=== PATIENT | female | born 1970 | race Caucasian/White ===

== ENCOUNTER 2020-07-06 15:48 | Inpatient (IN) ==
[2020-07-06] MEDS ORDERED: SODIUM CHLORIDE 0.9% 1000ML 1,000 ML IV SCH (17:45)
--- NOTE | 2020-07-06 17:55 | Emergency Department Note ---
Impression & Plan COVID-19, Breathlessness ED Provider Note Provider: Jay Lopez MD DATE OF SERVICE:07/06/2020 CHIEF COMPLAINT: Shortness of breath HISTORY OF PRESENT ILLNESS: Patient is a 50-year-old female reportedly with a factor V Leiden trait not on anticoagulation presenting here today complaining of shortness of breath developing overnight. Patient states since June 26 she her and daughter and several family members have been fighting a viral-like illness with associated fevers myalgias and headache. Patient states her and daughter tested positive for coronavirus but she has not yet been tested. States that the fever has not happened today but more shortness of breath developed overnight. Still complaining of some myalgias and headache as well as some pain in the upper thoracic back. Patient denies trauma. Patient denies significant abdominal pain does report some diarrhea and nausea at times. Patient states she is a non-smoker but her breathing is gotten worse and she feels short of breath so came to the hospital. REVIEW OF SYSTEMS: A total of 10 review of systems was obtained and negative except as stated above in the HPI. PAST MEDICAL HISTORY: As noted above MEDICATIONS: Denies current home medications SOCIAL HISTORY: Very distant smoker, lives at home with PHYSICAL EXAM: GENERAL: alert and oriented in no acute distress on stretcher sitting and coughing Head: normocephalic and atraumatic EYES: No injection, discharge or icterus. NECK: Trachea midline. Supple. LUNGS: Airway patent. No retractions however is coughing. Not tachypneic. HEART: Regular rate and rhythm. No chest wall tenderness ABDOMEN: Soft and non-tender, without guarding or rebound. SKIN: Acyanotic, warm, dry, without rashes EXTREMITIES: Without swelling, tenderness or deformity NEUROLOGICAL: No focal deficits. No aphasia. No facial droop or slurred speech. Ambulatory. EK beats per normal sinus rhythm no PVC or PAC. No acute ST segment elevation or depression. Normal QTC. Normal axis. CONTINUOUS CARDIAC MONITORING: was ordered and showed a heart rate of 80 bpm in normal sinus rhythm Patient's laboratory studies and imaging reviewed. Differential includes Viral syndrome, otitis, pharyngitis, pneumonia, influenza, meningitis, urinary tract infection, sepsis, bacteremia, PE, ACS as well as other pathologies. IMPRESSION/MEDICAL DECISION MAKING: Patient is calling shortness of breath likely related to COVID-19 given her exposure. Test was ordered here today. EKG and chest x-ray obtained. Given her history of factor V Leiden not on anticoagulation or shortness of breath D- dimer was sent to have a possible PE. Basic labs and troponin were sent as well as blood cultures and lactate. Given some IV fluid hydration. Patient is coughing and given some Tylenol and Hycodan as well as IV fluids for symptom control. Laboratory studies show no significant anemia but mild leukopenia white count 4.7. Chest x-ray per my review and radiology report without evidence of lobar pneumonia or pneumothorax. Some slight interstitial changes noted in the lower lung palumbo question atelectasis versus inflammatory changes. No significant electrolyte abnormality. Negative troponin. CRP mildly elevated 4.09. No evidence of pancreatitis. LFTs within normal limits. Covid19 is positive. D-dimer is negative and with the concurrent findings of coronavirus lower suspicion for acute PE. Procalcitonin undetectable. Again seems like a viral pneumonia from the coronavirus. Patient does desaturate into the high 80s ambulatory here and is in the low 90s at rest. Not a smoker. Had extensive discussion with the patient regarding options at this time further observation versus trial at home again. Given her weakness and desaturations with ambulation and significant worsening over the past 24 hours patient will be evaluated by the hospitalist for further observation here overnight. DIAGNOSIS: Shortness of breath, COVID-19 DISPOSITION: Hospitalist will evaluate Patient was agreeable with this plan. Past Med/Surg History Medical History (Updated 07/06/20 @ 21:22 by Jay Lopez M.D.) Factor V Leiden Surgical History No significant past surgical history Social History Smoking Status: Never smoker Preferred Language: Libyan marital status: Current Living Situation: Spouse current occupational status: employed Feels Safe at Home: Yes Allergies Allergies Allergy/AdvReac Type Severity Reaction Status Date / Time ampicillin AdvReac Intermediate Rash Unverified 07/06/20 20:18 Sulfa (Sulfonamide AdvReac Unknown Unknown Unverified 07/06/20 20:18 Antibiotics) Home Meds Home Medications Medication Instructions Recorded Confirmed Elderberry Gummy 2 - 4 tabs PO DAILY 07/06/20 07/06/20 Mellaleuca Activate Immune Tab 3 tabs PO DAILY 07/06/20 07/06/20 acetaminophen [Tylenol Extra 1,000 mg PO Q6H PRN 07/06/20 07/06/20 Strength] ibuprofen 400 mg PO Q6H PRN 07/06/20 07/06/20 menthol [Cough Drops] 0 mg PO UD PRN 07/06/20 07/06/20 Results & Data (ED) Vital Signs Vital Signs - 24 hr 07/06/20 16:08 07/06/20 18:17 07/06/20 18:30 Temperature 36.8 C 37.5 C Temperature Source Oral Oral Pulse Rate 96 H Pulse Rate [Apical] 86 Respiratory Rate 20 22 Respiratory Effort / Characteristics Non-Labored Non-Labored Non-Labored Respiratory Depth Normal Normal Blood Pressure 137/76 Blood Pressure [Right Arm] 127/75 Blood Pressure Mean 96 Blood Pressure Mean [Right Arm] 92 Blood Pressure Position [Right Arm] Pulse Oximetry 91 94 Oxygen Delivery Method Room Air Room Air Room Air Sepsis Recent Fever Within 48 Hours No Sepsis New/Unexplained Change in Mental Status N/A Sepsis Action Taken by Nursing No Action Required 07/06/20 19:00 07/06/20 20:30 07/06/20 21:15 Temperature Temperature Source Pulse Rate Pulse Rate [Apical] 79 72 Respiratory Rate 20 18 Respiratory Effort / Characteristics Respiratory Depth Blood Pressure Blood Pressure [Right Arm] 116/64 118/71 Blood Pressure Mean Blood Pressure Mean [Right Arm] 81 86 Blood Pressure Position [Right Arm] Lying Pulse Oximetry 96 93 88 L Oxygen Delivery Method Room Air Room Air Room Air Sepsis Recent Fever Within 48 Hours Sepsis New/Unexplained Change in Mental Status Sepsis Action Taken by Nursing Laboratory Data Result diagrams: 07/06/20 18:30 07/06/20 18:30 Lab Results 07/06/20 07/06/20 07/06/20 Range/Units 18:20 18:20 18:30 WBC (4.8-10.8) K/uL RBC (4.2-5.4) M/uL Hgb (12.0-16.0) g/dL Hct (37-47) % MCV (80-100) fL MCH (25-34) pg MCHC (32-36) g/dL RDW Std Deviation (36.4-46.3) fL RDW Coeff of Serina (11.5-14.5) % Plt Count (130-400) K/uL MPV (7.4-10.4) fL Immature Gran % (Auto) % Neut % (Auto) % Lymph % (Auto) % [place] % (Auto) % Eos % (Auto) % Baso % (Auto) % Neut # (Auto) (1.4-6.5) K/uL Lymph # (Auto) (1.2-3.4) K/uL Denton # (Auto) (0.11-0.59) K/uL Eos # (Auto) (0-0.5) K/uL Baso # (Auto) (0-0.2) K/uL Immature Gran # (Auto) (0.00-0.02) K/uL PT 10.9 (9.0-12.0) Seconds INR 1.0 (0.9-1.1) D-Dimer 440 (0-500) ug/L FEU Sodium (136-145) mmol/L Potassium (3.5-5.1) mmol/L Chloride (98-107) mmol/L Carbon Dioxide (21-32) mmol/L Anion Gap (3-11) BUN (7-18) mg/dl Creatinine (0.6-1.2) mg/dl Est Cr Clr Drug Dosing ml/min Est GFR ( Amer) Est GFR (Non-Af Amer) BUN/Creatinine Ratio (10-20) Glucose (70-99) mg/dl Lactate (0.4-2.0) mmol/L Calcium (8.5-10.1) mg/dl Total Bilirubin (0.2-1) mg/dl AST (15-37) U/L ALT (12-78) U/L Alkaline Phosphatase (45-117) U/L Troponin I (0-0.045) ng/ml C-Reactive Protein (0-0.29) mg/dl Total Protein (6.4-8.2) gm/dl Albumin (3.4-5.0) gm/dl Globulin (2.5-4.0) gm/dl Albumin/Globulin Ratio (0.9-2) Lipase (73-393) U/L Procalcitonin (0-0.5) ng/ml COVID-19 Eval Order Covid19 Done at [facility] COVID-19 PCR POSITIVE A* (Negative) 07/06/20 07/06/20 07/06/20 Range/Units 18:30 18:30 18:30 WBC 4.70 L (4.8-10.8) K/uL RBC 4.43 (4.2-5.4) M/uL Hgb 12.7 (12.0-16.0) g/dL Hct 40.0 (37-47) % MCV 90.3 (80-100) fL MCH 28.7 (25-34) pg MCHC 31.8 L (32-36) g/dL RDW Std Deviation 43.1 (36.4-46.3) fL RDW Coeff of Serina 13.0 (11.5-14.5) % Plt Count 192 (130-400) K/uL MPV 12.5 H (7.4-10.4) fL Immature Gran % (Auto) 0.2 % Neut % (Auto) 60.7 % Lymph % (Auto) 30.4 % Denton % (Auto) 8.5 % Eos % (Auto) 0.0 % Baso % (Auto) 0.2 % Neut # (Auto) 2.85 (1.4-6.5) K/uL Lymph # (Auto) 1.43 (1.2-3.4) K/uL Denton # (Auto) 0.40 (0.11-0.59) K/uL Eos # (Auto) 0.00 (0-0.5) K/uL Baso # (Auto) 0.01 (0-0.2) K/uL Immature Gran # (Auto) 0.01 (0.00-0.02) K/uL PT (9.0-12.0) Seconds INR (0.9-1.1) D-Dimer (0-500) ug/L FEU Sodium 138 (136-145) mmol/L Potassium 3.5 (3.5-5.1) mmol/L Chloride 105 (98-107) mmol/L Carbon Dioxide 29 (21-32) mmol/L Anion Gap 4.0 (3-11) BUN 9 (7-18) mg/dl Creatinine 0.75 (0.6-1.2) mg/dl Est Cr Clr Drug Dosing 100.0 ml/min Est GFR ( Amer) 108.5 Est GFR (Non-Af Amer) 93.6 BUN/Creatinine Ratio 11.6 (10-20) Glucose 82 (70-99) mg/dl Lactate (0.4-2.0) mmol/L Calcium 8.6 (8.5-10.1) mg/dl Total Bilirubin 0.5 (0.2-1) mg/dl AST 28 (15-37) U/L ALT 42 (12-78) U/L Alkaline Phosphatase 82 (45-117) U/L Troponin I < 0.015 (0-0.045) ng/ml C-Reactive Protein 4.09 H (0-0.29) mg/dl Total Protein 8.2 (6.4-8.2) gm/dl Albumin 3.7 (3.4-5.0) gm/dl Globulin 4.5 H (2.5-4.0) gm/dl Albumin/Globulin Ratio 0.8 L (0.9-2) Lipase 109 (73-393) U/L Procalcitonin < 0.05 (0-0.5) ng/ml COVID-19 Eval Order COVID-19 PCR (Negative) 07/06/20 Range/Units 19:59 WBC (4.8-10.8) K/uL RBC (4.2-5.4) M/uL Hgb (12.0-16.0) g/dL Hct (37-47) % MCV (80-100) fL MCH (25-34) pg MCHC (32-36) g/dL RDW Std Deviation (36.4-46.3) fL RDW Coeff of Serina (11.5-14.5) % Plt Count (130-400) K/uL MPV (7.4-10.4) fL Immature Gran % (Auto) % Neut % (Auto) % Lymph % (Auto) % Denton % (Auto) % Eos % (Auto) % Baso % (Auto) % Neut # (Auto) (1.4-6.5) K/uL Lymph # (Auto) (1.2-3.4) K/uL Denton # (Auto) (0.11-0.59) K/uL Eos # (Auto) (0-0.5) K/uL Baso # (Auto) (0-0.2) K/uL Immature Gran # (Auto) (0.00-0.02) K/uL PT (9.0-12.0) Seconds INR (0.9-1.1) D-Dimer (0-500) ug/L FEU Sodium (136-145) mmol/L Potassium (3.5-5.1) mmol/L Chloride (98-107) mmol/L Carbon Dioxide (21-32) mmol/L Anion Gap (3-11) BUN (7-18) mg/dl Creatinine (0.6-1.2) mg/dl Est Cr Clr Drug Dosing ml/min Est GFR ( Amer) Est GFR (Non-Af Amer) BUN/Creatinine Ratio (10-20) Glucose (70-99) mg/dl Lactate 0.8 (0.4-2.0) mmol/L Calcium (8.5-10.1) mg/dl Total Bilirubin (0.2-1) mg/dl AST (15-37) U/L ALT (12-78) U/L Alkaline Phosphatase (45-117) U/L Troponin I (0-0.045) ng/ml C-Reactive Protein (0-0.29) mg/dl Total Protein (6.4-8.2) gm/dl Albumin (3.4-5.0) gm/dl Globulin (2.5-4.0) gm/dl Albumin/Globulin Ratio (0.9-2) Lipase (73-393) U/L Procalcitonin (0-0.5) ng/ml COVID-19 Eval Order COVID-19 PCR (Negative) Administered Medications Discontinued Medications Acetaminophen (Acetaminophen 500 Mg Tab) 1,000 mg PO NOW STA Stop: 07/06/20 17:58 Last Admin: 07/06/20 18:16 Dose: 1,000 mg Documented by: [id number] Hydrocodone Bit/Homatropine Methylb (Hydrocodone/Homatropine Syrup 5mg/1.5mg 5ml Udp) 5 ml PO NOW STA Stop: 07/06/20 17:58 Last Admin: 07/06/20 18:16 Dose: 5 ml Documented by: [id number] Sodium Chloride (Nss 1000ml) 1,000 mls @ 999 mls/hr IV .Q1H1M [id number] Stop: 07/06/20 18:45 Last Admin: 07/06/20 19:13 Dose: 999 mls/hr Documented by: [id number] Discharge Plan Visit Data Chief Complaint: Shortness of Breath/Dyspnea Stated Complaint: & DAUGHTER TESTED POSITIVE FOR COVID ED Provider: Jay Lopez Discharge Problem: COVID-19, Breathlessness Forms Stand Alone Forms: [facility] Prescriptions Prescriptions: No Action acetaminophen [Tylenol Extra Strength] 500 mg Tablet 1,000 mg PO Q6H PRN (Reason: Fever Or Pain) RF: 0 ibuprofen 200 mg Tablet 400 mg PO Q6H PRN (Reason: Pain) RF: 0 Cough Drops 2.7 mg Lozenge 0 mg PO UD PRN (Reason: Cough) RF: 0 Elderberry Gummy 2 - 4 tabs PO DAILY RF: 0 Mellaleuca Activate Immune Tab 3 tabs PO DAILY RF: 0
[2020-07-06] MEDS ORDERED: HYDROcodone/HOMATROPINE SYRUP 5MG/1.5MG 5ML UDP PO STA (17:57)
[2020-07-06] MEDS ORDERED: ACETAMINOPHEN 500 MG TAB PO STA (17:57)
[2020-07-06 19:06] LABS: Basophils # (auto) 0.01 K/uL (0-0.2); Basophils % (auto) 0.2 %; Hemoglobin 12.7 g/dL (12.0-16.0); Immature Granulocytes # (auto) 0.01 K/uL (0.00-0.02); Immature Granulocytes % (auto) 0.2 %; Lymphocytes # (auto) 1.43 K/uL (1.2-3.4); Lymphocytes % (auto) 30.4 %; Mean Corpuscular Hemoglobin 28.7 pg (25-34); Mean Corpuscular Hgb Conc 31.8 g/dL (32-36); Mean Corpuscular Volume 90.3 fL (80-100); Mean Platelet Volume 12.5 fL (7.4-10.4); Monocytes % (auto) 8.5 %; Neutrophils # (auto) 2.85 K/uL (1.4-6.5); Neutrophils % (auto) 60.7 %; Platelet Count 192 K/uL (130-400); RDW Standard Deviation 43.1 fL (36.4-46.3); Red Blood Count 4.43 M/uL (4.2-5.4)
[2020-07-06 19:16] LABS: D Dimer 440 ug/L FEU (0-500); Prothrombin Time 10.9 Seconds (9.0-12.0)
[2020-07-06 19:24] LABS: Alanine Aminotransferase 42 U/L (12-78); Albumin Level 3.7 gm/dl (3.4-5.0); Aspartate Aminotransferase 28 U/L (15-37); BUN Creatinine Ratio 11.6 (10-20); Blood Urea Nitrogen 9 mg/dl (7-18); Calcium 8.6 mg/dl (8.5-10.1); Carbon Dioxide 29 mmol/L (21-32); Chloride 105 mmol/L (98-107); Est GFR (African American) 108.5; Est GFR (Non-African American) 93.6; Glucose 82 mg/dl (70-99); Lipase 109 U/L (73-393); Potassium 3.5 mmol/L (3.5-5.1); Sodium 138 mmol/L (136-145)
--- NOTE | 2020-07-06 19:27 | XRay Report ---
XR chest 1V portable CLINICAL HISTORY: Shortness of breath. Cough. COMPARISON STUDY: No previous studies for comparison. FINDINGS: Lung volumes are diminished. There is no pneumothorax or pleural effusion. There are mild b ilateral lower lung airspace opacities. Cardiac size is normal. There is no evidence for pulmonary ed eliel. IMPRESSION: Mild bilateral lower lung airspace opacities which could reflect an infectious process o r atelectasis. Radiographic follow-up is recommended. ACT 112: Negative or not required by law. Electronically signed by: Keegan Pittman M.D. 07/06/2020 7:26 PM
[2020-07-06 19:28] LABS: Albumin Globulin Ratio 0.8 (0.9-2); Alkaline Phosphatase 82 U/L (45-117); Bilirubin,Total 0.5 mg/dl (0.2-1); C Reactive Protein 4.09 mg/dl (0-0.29); Globulin 4.5 gm/dl (2.5-4.0); Total Protein 8.2 gm/dl (6.4-8.2); Troponin I < 0.015 ng/ml (0-0.045)
[2020-07-06] MEDS ORDERED: DEXAMETHASONE SOD INJ 10 MG/ML VIAL IV ONE (22:31)
--- NOTE | 2020-07-06 22:49 | History & Physical Report ---
Date of Service July 06, 2020 Assessment & Plan (1) Pneumonia due to COVID-19 virus: Pneumonia due to COVID-19 virus with hypoxia- Pulse ox initially 88% on room air, prior to treatments. Abnormal chest x-ray with bibasilar infiltrate Admit to hospital. Decadron 6 mg IV daily. Remdesivir IV per protocol Ceftriaxone 1 g IV daily Azithromycin 500 mg IV daily Ventolin HFA 2 puffs 4 times daily and every 2 hours as needed Nasal cannula oxygen, titrate to keep pulse ox around 95% Present on Admission?: Yes (2) Hypoxia: See above Present on Admission?: Yes (3) Dehydration: NSS + KCl 20 mEq at 100 mils per hour Present on Admission?: Yes History of Present Illness Chief Complaint: The patient presents to the emergency department with worsening shortness of breath that began about 3 days ago, and worsened overnight. Primary Care Provider: NO PCP The patient is a 50-year-old female with a past medical history including fa annemarieor Jelly Patton whose and daughter and several of the family members have been diagnosed with COVID-19 infection. Her was admitted to the hospital here last evening with COVID-19 pneumonia. Testing for her in the emergency department tonight did reveal a positive COVID-19 test, and chest x- ray showed bilateral basal infiltrates suggesting pneumonia. She is also had significant issues with nausea but no vomiting, and feels very fatigued. Allergies Allergy/AdvReac Type Severity Reaction Status Date / Time ampicillin AdvReac Intermediate Rash Unverified 07/06/20 20:18 Sulfa (Sulfonamide AdvReac Unknown Unknown Unverified 07/06/20 20:18 Antibiotics) Home Medications Home Medications Medication Instructions Recorded Confirmed Type Elderberry Gummy 2 - 4 tabs PO DAILY 07/06/20 07/06/20 History Mellaleuca Activate Immune Tab 3 tabs PO DAILY 07/06/20 07/06/20 History acetaminophen [Tylenol Extra 1,000 mg PO Q6H PRN 07/06/20 07/06/20 History Strength] ibuprofen 400 mg PO Q6H PRN 07/06/20 07/06/20 History menthol [Cough Drops] 0 mg PO UD PRN 07/06/20 07/06/20 History Past Med/Surg History Medical History (Updated 07/07/20 @ 02:45 by Figueroa Garvin MD) Factor V Leiden Surgical History No significant past surgical history Social History Smoking Status: Never smoker Preferred Language: Cuban marital status: Current Living Situation: Spouse current occupational status: employed Feels Safe at Home: Yes Review of Systems Review of Systems: The patient denies chest pain, palpitations, lower extremity swelling, sore throat, chills, sweats, vomiting, diarrhea , constipation, abdominal pain, pelvic pain, blood in urine or stool, dysuria, urinary frequency or urgency, lightheadedness, dizziness, memory loss, loss of consciousness, rash, abnormal bruising or bleeding, imbalance, focal weakness, numbness or tingling in arms or legs, or night sweats. The review of systems is otherwise negative other than for that already noted above, and at least 10 systems have been reviewed. Physical Exam Physical Exam: The patient is awake, alert and oriented 3, well developed and well nourished, normocephalic and atraumatic, lying in bed and in no acute distress. HEENT--PERRL, EOMI, mucous membranes and oropharynx dry. Neck--supple. No JVD. No bruits. Thyroid normal, trachea midline, no adenopathy. Heart--normal S1 and S2. No murmurs, rubs or gallops. Lungs--coarse breath sounds. no respiratory distress, no accessory muscle use. Abdomen--normal bowel sounds and soft. Nontender. Nondistended, no hernias or masses, no organomegaly. Extremities--no cyanosis or clubbing. No edema. Dermatologic--normal skin turgor, normal color, no abnormal lymph nodes, no rash. Neurologic--cranial nerves II through XII grossly intact. Rheumatologic--normal range of motion. Psychiatric--normal affect. Results & Data Results & Data ([facility]) Vital Signs (Past 12 Hours) Vital Signs Temp Pulse Pulse Resp BP BP Pulse Ox 07/06/20 21:15 88 L 07/06/20 20:30 72 18 118/71 93 07/06/20 19:00 79 20 116/64 96 07/06/20 18:17 99.5 F 86 22 127/75 94 07/06/20 16:08 98.2 F 96 H 20 137/76 91 Laboratory Results Laboratory Results WBC 4.70 K/uL (4.8-10.8) L 07/06/20 18:30 RBC 4.43 M/uL (4.2-5.4) 07/06/20 18:30 Hgb 12.7 g/dL (12.0-16.0) 07/06/20 18:30 Hct 40.0 % (37-47) 07/06/20 18:30 MCV 90.3 fL (80-100) 07/06/20 18:30 MCH 28.7 pg (25-34) 07/06/20 18:30 MCHC 31.8 g/dL (32-36) L 07/06/20 18:30 RDW Std Deviation 43.1 fL (36.4-46.3) 07/06/20 18:30 RDW Coeff of Serina 13.0 % (11.5-14.5) 07/06/20 18:30 Plt Count 192 K/uL (130-400) 07/06/20 18:30 MPV 12.5 fL (7.4-10.4) H 07/06/20 18:30 Immature Gran % (Auto) 0.2 % 07/06/20 18:30 Neut % (Auto) 60.7 % 07/06/20 18:30 Lymph % (Auto) 30.4 % 07/06/20 18:30 Kimble % (Auto) 8.5 % 07/06/20 18:30 Eos % (Auto) 0.0 % 07/06/20 18:30 Baso % (Auto) 0.2 % 07/06/20 18:30 Neut # (Auto) 2.85 K/uL (1.4-6.5) 07/06/20 18:30 Lymph # (Auto) 1.43 K/uL (1.2-3.4) 07/06/20 18:30 Kimble # (Auto) 0.40 K/uL (0.11-0.59) 07/06/20 18:30 Eos # (Auto) 0.00 K/uL (0-0.5) 07/06/20 18:30 Baso # (Auto) 0.01 K/uL (0-0.2) 07/06/20 18:30 Immature Gran # (Auto) 0.01 K/uL (0.00-0.02) 07/06/20 18:30 PT 10.9 Seconds (9.0-12.0) 07/06/20 18:30 INR 1.0 (0.9-1.1) 07/06/20 18:30 D-Dimer 440 ug/L FEU (0-500) 07/06/20 18:30 Sodium 138 mmol/L (136-145) 07/06/20 18:30 Potassium 3.5 mmol/L (3.5-5.1) 07/06/20 18:30 Chloride 105 mmol/L (98-107) 07/06/20 18:30 Carbon Dioxide 29 mmol/L (21-32) 07/06/20 18:30 Anion Gap 4.0 (3-11) 07/06/20 18:30 BUN 9 mg/dl (7-18) 07/06/20 18:30 Creatinine 0.75 mg/dl (0.6-1.2) 07/06/20 18:30 Est Cr Clr Drug Dosing 100.0 ml/min 07/06/20 18:30 Est GFR ( Amer) 108.5 07/06/20 18:30 Est GFR (Non-Af Amer) 93.6 07/06/20 18:30 BUN/Creatinine Ratio 11.6 (10-20) 07/06/20 18:30 Glucose 82 mg/dl (70-99) 07/06/20 18:30 Lactate 0.8 mmol/L (0.4-2.0) 07/06/20 19:59 Calcium 8.6 mg/dl (8.5-10.1) 07/06/20 18:30 Total Bilirubin 0.5 mg/dl (0.2-1) 07/06/20 18:30 AST 28 U/L (15-37) 07/06/20 18:30 ALT 42 U/L (12-78) 07/06/20 18:30 Alkaline Phosphatase 82 U/L (45-117) 07/06/20 18:30 Troponin I < 0.015 ng/ml (0-0.045) 07/06/20 18:30 C-Reactive Protein 4.09 mg/dl (0-0.29) H 07/06/20 18:30 Total Protein 8.2 gm/dl (6.4-8.2) 07/06/20 18:30 Albumin 3.7 gm/dl (3.4-5.0) 07/06/20 18:30 Globulin 4.5 gm/dl (2.5-4.0) H 07/06/20 18:30 Albumin/Globulin Ratio 0.8 (0.9-2) L 07/06/20 18:30 Lipase 109 U/L (73-393) 07/06/20 18:30 Procalcitonin < 0.05 ng/ml (0-0.5) 07/06/20 18:30 COVID-19 Eval Order Covid19 Done at [facility] 07/06/20 18:20 COVID-19 PCR POSITIVE (Negative) A* 07/06/20 18:20 Diagnostic Findings [facility], [id number] XRay Report Patient: LINDA AKERS AAdmit Date: 07/06/20MR#: [id number]: [address] [id number]: Date: [address] Zip: [place] [address]Bsf: 50Location: EDSex: FRoom/Bed:Att Phy:Diagnosis: & DAUGHTER TESTED POSITIVE FOR COVIDPri Phy: PCP,NOService Date: 07/06/20Fam Phy:Interpreting Phy: Keegan Pittman MDAdmit Phy: Ordering Phy: Jay Lopez M.D. cc: ~ XR chest 1V portable CLINICAL HISTORY: Shortness of breath. Cough. COMPARISON STUDY: No previous studies for comparison. FINDINGS: Lung volumes are diminished. There is no pneumothorax or pleural effusion. There are mild bilateral lower lung airspace opacities. Cardiac size is normal. There is no evidence for pulmonary edema. IMPRESSION: Mild bilateral lower lung airspace opacities which could reflect an infectious process or atelectasis. Radiographic follow-up is recommended. ACT 112: Negative or not required by law. Electronically signed by: Keegan Pittman M.D. 07/06/2020 7:26 PM Dictated: 11/11/20 1924Transcribed: 07/06/204 Code Status & VTE Plan Code Status Full code VTE Prophylaxis Plan VTE Prophylaxis will be ordered: Yes PG Care Time/CCT Total # of Minutes Spent Total Time Spent with Patient: Total time spent is greater than 50% in coordination of care (as documented) at patient's floor/unit and/or counseling patient: Coding Level of Care Code 91824 Initial Inpt Care Lvl 3 Diagnoses Pneumonia due to COVID-19 virus U07.1; J12.89 Hypoxia R09.02 Dehydration E86.0
[2020-07-06] MEDS ORDERED: FAMOTIDINE 20MG/5ML IV PUSH IV ONE (23:18)
[2020-07-06] MEDS: FAMOTIDINE 20 MG in SYRINGE 3 ML IV SCH (23:38)
[2020-07-07] MEDS ORDERED: ACETAMINOPHEN 325 MG TAB PO PRN (02:28)
[2020-07-07] MEDS ORDERED: ACETAMINOPHEN 500 MG TAB PO PRN (02:28)
[2020-07-07] MEDS ORDERED: ONDANSETRON INJ 2 MG/ML 2 ML VIAL IV PRN (02:28)
[2020-07-07] MEDS ORDERED: REMDESIVIR 200 MG in SODIUM CHLORIDE 0.9% 210 ML IV ONE (03:00)
[2020-07-07 03:25] LABS: Appearance Urine Cloudy (Clear); Bacteria Urine Automated 2+ (Negative); Bilirubin Urine Negative (Negative); Blood Urine Negative (Negative); Color Urine Yellow; Epithelial Cell Urine Auto >30 /lpf (0-5); Glucose Urine UA Negative (Negative); Ketones Urine 2+ (Negative); Leukocyte Esterase Urine 1+ (Negative); Nitrite Urine Negative (Negative); Protein Urine Negative (Negative); RBC Urine Automated 0-4 /hpf (0-4); Specific Gravity Urine 1.017 (1.000-1.030); Urobilinogen Urine Negative (Negative)
[2020-07-07] MEDS: NSS + 20MEQ KCL 20 MEQ/1,000 ML BAG IV SCH ×2 (03:46→14:28)
[2020-07-07] MEDS: cefTRIAXone SODIUM 2,000 MG in DEXTROSE 5% 50 ML IV SCH (03:47)
[2020-07-07] MEDS: AZITHROMYCIN 500 MG in DEXTROSE 5% 250 ML IV SCH (05:33)
[2020-07-07] MEDS: SODIUM CHLORIDE 0.9% 10ML FLUSH IV SCH (07:48)
[2020-07-07] MEDS: BENZONATATE 100 MG CAPSULE PO SCH ×3 (07:48→21:58)
[2020-07-07] MEDS: dexAMETHasone 6 MG in SYRINGE 0 ML IV SCH (07:48)
[2020-07-07] MEDS: ALBUTEROL HFA 8 GM INHALER INH SCH ×4 (07:53→19:58)
[2020-07-07] MEDS: ENOXAPARIN INJ 40 MG/0.4 ML SYR SQ SCH (09:24)
[2020-07-07] MEDS: FAMOTIDINE 20 MG in SYRINGE 3 ML IV SCH ×2 (09:25→21:58)
--- NOTE | 2020-07-07 10:43 | Electrocardiogram Report ---
Test Reason : Blood Pressure : / mmHG Vent. Rate : 083 BPM Atrial Rate : 083 BPM P-R Int : 166 ms QRS Dur : 076 ms QT Int : 376 ms P-R-T Axes : 048 -09 018 degrees QTc Int : 441 ms Poor data quality, interpretation may be adversely affected Normal sinus rhythm Septal infarct , age undetermined Abnormal ECG No previous ECGs available Confirmed by Aayush Ravi ([id number]) on 07/07/2020 10:43:23 AM Referred By: REFERRED SELF Confirmed By:Aayush Ravi
--- NOTE | 2020-07-07 16:14 | Hospitalist Progress Note ---
Date of Service July 07, 2020 Assessment & Plan (1) Pneumonia due to COVID-19 virus: Pneumonia due to COVID-19 virus with hypoxia- Pulse ox initially 88% on room air, prior to treatments. Abnormal chest x-ray with bibasilar infiltrate Decadron 6 mg IV daily x 10 days, today is day 2 Remdesivir IV per protocol, today is day 2 no role for plasma as diagnosis was over a week ago Ceftriaxone 1 g IV daily Azithromycin 500 mg IV daily Ventolin HFA 2 puffs 4 times daily and every 2 hours as needed Nasal cannula oxygen, titrate to keep pulse ox around 95%, currently requiring 2L but very short of breath on exertion try to titrate oxygen, might be ready for discharge tomorrow (2) Hypoxia: See above (3) Dehydration: NSS + KCl 20 mEq at 100 mils per hour can stop fluids today Admission and Anticipated Discharge Date Admission Date: July 06, 2020 Subjective patient says she is doing okay if laying still, but even the slightest amount of exertion makes her very short of breath no fever or chills, her appetite is okay, not great, no nausea she has a dry cough reviewed labs, UA with 10-30 WBC Review of Systems Review of Systems: All systems reviewed & are unremarkable except as noted in Subjective Constitutional: + fatigue and + weakness; no fever, no chills and no sweats Respiratory: + cough, + chest congestion, + dyspnea and + dyspnea on exertion; no pain with cough, no sputum production and no wheezing Cardiovascular: no chest pain and no edema Musculoskeletal: no joint pain Physical Exam Constitutional: well developed, well nourished and + ill appearing; no acute distress Neck: trachea midline, no thyromegaly Respiratory: normal respiratory effort, lungs clear to auscultation Cardiovascular: RRR, no murmur, no edema Gastrointestinal (Abdomen): normal bowel sounds, soft, nontender, no hepatosplenomegaly Musculoskeletal: no cyanosis or clubbing, extremities motor strength 5/5 Skin: no rashes, warm and dry Neurologic: patellar DTR's 2+ bilat, sensation intact and PERRL, EOMI, accommodation nl, no face palsy, no dysarthria Psychiatric: A+Ox3, euthymic affect Lymphatic: no cervical or axillary lymphadenopathy Results & Data Results & Data ([facility]) Vital Signs (Past 12 Hours) Vital Signs Temp Pulse Pulse Resp BP Pulse Ox 07/07/20 15:44 81 92 07/07/20 14:35 90 07/07/20 14:31 37.4 C 77 146/75 H 87 L 07/07/20 11:42 36.6 C 76 146/75 H 89 L 07/07/20 11:14 67 20 95 07/07/20 08:02 36.9 C 72 124/76 93 07/07/20 07:52 74 20 92 Laboratory Results Laboratory Results - last 24 hr 07/06/20 07/06/20 07/06/20 18:20 18:20 18:30 WBC RBC Hgb Hct MCV MCH MCHC RDW Std Deviation RDW Coeff of Serina Plt Count MPV Immature Gran % (Auto) Neut % (Auto) Lymph % (Auto) [place] % (Auto) Eos % (Auto) Baso % (Auto) Neut # (Auto) Lymph # (Auto) [place] # (Auto) Eos # (Auto) Baso # (Auto) Immature Gran # (Auto) PT 10.9 INR 1.0 D-Dimer 440 Sodium Potassium Chloride Carbon Dioxide Anion Gap BUN Creatinine Est Cr Clr Drug Dosing Est GFR ( Amer) Est GFR (Non-Af Amer) BUN/Creatinine Ratio Glucose Lactate Calcium Total Bilirubin AST ALT Alkaline Phosphatase Troponin I C-Reactive Protein Total Protein Albumin Globulin Albumin/Globulin Ratio Lipase Procalcitonin Urine Color Urine Appearance Urine pH Ur Specific [place] Urine Protein Urine Glucose (UA) Urine Ketones Urine Blood Urine Nitrite Urine Bilirubin Urine Urobilinogen Ur Leukocyte Esterase Urine WBC (Auto) Urine RBC (Auto) U Hyaline Cast (Auto) U Epithel Cells (Auto) Urine Bacteria (Auto) COVID-19 Eval Order Covid19 Done at [facility] COVID-19 PCR POSITIVE A* 07/06/20 07/06/20 07/06/20 18:30 18:30 18:30 WBC 4.70 L RBC 4.43 Hgb 12.7 Hct 40.0 MCV 90.3 MCH 28.7 MCHC 31.8 L RDW Std Deviation 43.1 RDW Coeff of Serina 13.0 Plt Count 192 MPV 12.5 H Immature Gran % (Auto) 0.2 Neut % (Auto) 60.7 Lymph % (Auto) 30.4 [place] % (Auto) 8.5 Eos % (Auto) 0.0 Baso % (Auto) 0.2 Neut # (Auto) 2.85 Lymph # (Auto) 1.43 [place] # (Auto) 0.40 Eos # (Auto) 0.00 Baso # (Auto) 0.01 Immature Gran # (Auto) 0.01 PT INR D-Dimer Sodium 138 Potassium 3.5 Chloride 105 Carbon Dioxide 29 Anion Gap 4.0 BUN 9 Creatinine 0.75 Est Cr Clr Drug Dosing 100.0 Est GFR ( Amer) 108.5 Est GFR (Non-Af Amer) 93.6 BUN/Creatinine Ratio 11.6 Glucose 82 Lactate Calcium 8.6 Total Bilirubin 0.5 AST 28 ALT 42 Alkaline Phosphatase 82 Troponin I < 0.015 C-Reactive Protein 4.09 H Total Protein 8.2 Albumin 3.7 Globulin 4.5 H Albumin/Globulin Ratio 0.8 L Lipase 109 Procalcitonin < 0.05 Urine Color Urine Appearance Urine pH Ur Specific [place] Urine Protein Urine Glucose (UA) Urine Ketones Urine Blood Urine Nitrite Urine Bilirubin Urine Urobilinogen Ur Leukocyte Esterase Urine WBC (Auto) Urine RBC (Auto) U Hyaline Cast (Auto) U Epithel Cells (Auto) Urine Bacteria (Auto) COVID-19 Eval Order COVID-19 PCR 07/06/20 07/07/20 19:59 02:00 WBC RBC Hgb Hct MCV MCH MCHC RDW Std Deviation RDW Coeff of Serina Plt Count MPV Immature Gran % (Auto) Neut % (Auto) Lymph % (Auto) [place] % (Auto) Eos % (Auto) Baso % (Auto) Neut # (Auto) Lymph # (Auto) [place] # (Auto) Eos # (Auto) Baso # (Auto) Immature Gran # (Auto) PT INR D-Dimer Sodium Potassium Chloride Carbon Dioxide Anion Gap BUN Creatinine Est Cr Clr Drug Dosing Est GFR ( Amer) Est GFR (Non-Af Amer) BUN/Creatinine Ratio Glucose Lactate 0.8 Calcium Total Bilirubin AST ALT Alkaline Phosphatase Troponin I C-Reactive Protein Total Protein Albumin Globulin Albumin/Globulin Ratio Lipase Procalcitonin Urine Color Yellow Urine Appearance Cloudy A Urine pH 5.0 Ur Specific [place] 1.017 Urine Protein Negative Urine Glucose (UA) Negative Urine Ketones 2+ H Urine Blood Negative Urine Nitrite Negative Urine Bilirubin Negative Urine Urobilinogen Negative Ur Leukocyte Esterase 1+ H Urine WBC (Auto) 10-30 H Urine RBC (Auto) 0-4 U Hyaline Cast (Auto) 5-10 H U Epithel Cells (Auto) >30 H Urine Bacteria (Auto) 2+ H COVID-19 Eval Order COVID-19 PCR Medications Administered Current Inpatient Medications Acetaminophen (Acetaminophen 325 Mg Tab) 650 mg PO Q4H PRN PRN Reason: Pain or Fever Stop: 08/06/20 02:27 Albuterol (Albuterol Hfa 8 Gm Inhaler) 2 puffs INH QID TEJA Stop: 08/06/20 08:59 Last Admin: 07/07/20 15:43 Dose: 2 puffs Documented by: Benzonatate (Benzonatate 100 Mg Capsule) 100 mg PO TID TEJA Stop: 08/06/20 08:59 Last Admin: 07/07/20 14:28 Dose: 100 mg Documented by: Enoxaparin Sodium (Enoxaparin Inj 40 Mg/0.4 Ml Syr) 40 mg SQ Q24H [facility] Stop: 08/06/20 08:59 Last Admin: 07/07/20 09:24 Dose: 40 mg Documented by: Famotidine 20 mg/ Syringe 5 mls @ 2.5 mls/min IV Q12 [facility] Stop: 08/05/20 22:44 Last Admin: 07/07/20 09:25 Dose: 2.5 mls/min Documented by: Potassium Chloride/Sodium Chloride (Normal Saline W/20 Meq Kcl) 20 meq in 1,000 mls @ 100 mls/hr IV .Q10H [facility] Stop: 08/06/20 02:27 Last Admin: 07/07/20 14:28 Dose: 100 mls/hr Documented by: Dexamethasone 6 mg/ Syringe 1.5 mls @ 1 mls/min IV DAILY [facility] Stop: 08/06/20 08:59 Last Admin: 07/07/20 07:48 Dose: 1 mls/min Documented by: Remdesivir 100 mg/ Sodium (Chloride) 250 mls @ 250 mls/hr IV Q24H [facility]; Protocol Stop: 07/11/20 03:59 Ceftriaxone Sodium 2,000 mg/ (Dextrose) 70 mls @ 100 mls/hr IV Q24H [facility]; Protocol Stop: 07/14/20 02:59 Last Infusion: 07/07/20 05:00 Dose: Infused Documented by: Azithromycin 500 mg/ Dextrose 255 mls @ 125 mls/hr IV Q24H [facility] Stop: 07/14/20 03:59 Last Infusion: 07/07/20 08:31 Dose: Infused Documented by: Ondansetron HCl (Ondansetron Inj 2 Mg/Ml 2 Ml Vial) 4 mg IV Q6H PRN PRN Reason: Nausea Stop: 08/06/20 02:27 Sodium Chloride (Sodium Chloride 0.9% 10ml Flush) 30 ml IV Q24H [facility] Stop: 07/11/20 03:01 Last Admin: 07/07/20 07:48 Dose: 30 ml Documented by: PG Care Time/CCT Total # of Minutes Spent Total Time Spent with Patient: Total time spent is greater than 50% in coordination of care (as documented) at patient's floor/unit and/or counseling patient: Coding Level of Care Code 61248 Subseq Hosp Care Lvl 2 Diagnoses Pneumonia due to COVID-19 virus U07.1; J12.89 Hypoxia R09.02 Dehydration E86.0
[2020-07-08] MEDS: cefTRIAXone SODIUM 2,000 MG in DEXTROSE 5% 50 ML IV SCH (03:40)
[2020-07-08] MEDS: REMDESIVIR 100 MG in SODIUM CHLORIDE 0.9% 230 ML IV SCH (03:40)
[2020-07-08] MEDS: SODIUM CHLORIDE 0.9% 10ML FLUSH IV SCH (03:41)
[2020-07-08] MEDS: AZITHROMYCIN 500 MG in DEXTROSE 5% 250 ML IV SCH (04:25)
[2020-07-08] MEDS: ALBUTEROL HFA 8 GM INHALER INH SCH (07:50)
[2020-07-08] MEDS: ENOXAPARIN INJ 40 MG/0.4 ML SYR SQ SCH (08:22)
[2020-07-08] MEDS: FAMOTIDINE 20 MG in SYRINGE 3 ML IV SCH ×2 (08:22→21:15)
[2020-07-08] MEDS: dexAMETHasone 6 MG in SYRINGE 0 ML IV SCH (08:22)
[2020-07-08] MEDS: BENZONATATE 100 MG CAPSULE PO SCH ×3 (08:23→21:15)
[2020-07-08] MEDS ORDERED: ALBUTEROL HFA 8 GM INHALER INH PRN (08:57)
--- NOTE | 2020-07-08 16:40 | Hospitalist Progress Note ---
Date of Service July 08, 2020 Assessment & Plan (1) Pneumonia due to COVID-19 virus: Pneumonia due to COVID-19 virus with hypoxia- Pulse ox initially 88% on room air, prior to treatments. Abnormal chest x-ray with bibasilar infiltrate Decadron 6 mg IV daily x 10 days, today is day 3 Remdesivir IV per protocol, today is day 3 no role for plasma as diagnosis was over a week ago Ceftriaxone 1 g IV daily x 5 days Azithromycin 500 mg IV daily x 5 days Ventolin HFA 2 puffs 4 times daily and every 2 hours as needed still on 2L NC today, sats 94%, she quickly desaturates with minimal movement and feels short of breath should improve in next 1-2 days, hope for discharge (2) Hypoxia: See above (3) Dehydration: NSS + KCl 20 mEq at 100 mils per hour stopped fluids 07/07 Admission and Anticipated Discharge Date Admission Date: July 06, 2020 Subjective patient is doing a little better than yesterday, but not much she is still really short of breath with minimal activity, she is fine if laying still she is eating better, she is drinking, making urine no fever did not check labs today she says her is doing fine at home since discharge yesterday Review of Systems Review of Systems: All systems reviewed & are unremarkable except as noted in Subjective Physical Exam Constitutional: well developed, well nourished and + ill appearing; no acute distress Neck: trachea midline, no thyromegaly Respiratory: normal respiratory effort, lungs clear to auscultation Cardiovascular: RRR, no murmur, no edema Gastrointestinal (Abdomen): normal bowel sounds, soft, nontender, no hepatosplenomegaly Musculoskeletal: no cyanosis or clubbing, extremities motor strength 5/5 Skin: no rashes, warm and dry Neurologic: patellar DTR's 2+ bilat, sensation intact and PERRL, EOMI, accommodation nl, no face palsy, no dysarthria Psychiatric: A+Ox3, euthymic affect Lymphatic: no cervical or axillary lymphadenopathy Results & Data Results & Data ([facility]) Vital Signs (Past 12 Hours) Vital Signs Temp Pulse Resp BP Pulse Ox 07/08/20 14:44 37.4 C 73 118/74 94 07/08/20 07:50 73 18 97 07/08/20 07:31 36.5 C 64 16 121/71 94 Medications Administered Current Inpatient Medications Acetaminophen (Acetaminophen 325 Mg Tab) 650 mg PO Q4H PRN PRN Reason: Pain or Fever Stop: 08/06/20 02:27 Albuterol (Albuterol Hfa 8 Gm Inhaler) 2 puffs INH Q4 PRN PRN Reason: Shortness Of Breath Or Wheezing Stop: 08/07/20 11:59 Benzonatate (Benzonatate 100 Mg Capsule) 100 mg PO TID [facility] Stop: 08/06/20 08:59 Last Admin: 07/08/20 14:43 Dose: 100 mg Documented by: Enoxaparin Sodium (Enoxaparin Inj 40 Mg/0.4 Ml Syr) 40 mg SQ Q24H [facility] Stop: 08/06/20 08:59 Last Admin: 07/08/20 08:22 Dose: 40 mg Documented by: Famotidine 20 mg/ Syringe 5 mls @ 2.5 mls/min IV Q12 [facility] Stop: 08/05/20 22:44 Last Admin: 07/08/20 08:22 Dose: 2.5 mls/min Documented by: Dexamethasone 6 mg/ Syringe 1.5 mls @ 1 mls/min IV DAILY [facility] Stop: 08/06/20 08:59 Last Admin: 07/08/20 08:22 Dose: 1 mls/min Documented by: Remdesivir 100 mg/ Sodium (Chloride) 250 mls @ 250 mls/hr IV Q24H [facility]; Protocol Stop: 07/11/20 06:59 Last Infusion: 07/08/20 06:18 Dose: Infused Documented by: Ceftriaxone Sodium 2,000 mg/ (Dextrose) 70 mls @ 100 mls/hr IV Q24H [facility]; Protocol Stop: 07/14/20 02:59 Last Infusion: 07/08/20 06:18 Dose: Infused Documented by: Azithromycin 500 mg/ Dextrose 255 mls @ 125 mls/hr IV Q24H [facility] Stop: 07/14/20 03:59 Last Infusion: 07/08/20 06:35 Dose: Infused Documented by: Ondansetron HCl (Ondansetron Inj 2 Mg/Ml 2 Ml Vial) 4 mg IV Q6H PRN PRN Reason: Nausea Stop: 08/06/20 02:27 Sodium Chloride (Sodium Chloride 0.9% 10ml Flush) 30 ml IV Q24H [facility] Stop: 07/11/20 06:01 Last Admin: 07/08/20 03:41 Dose: 30 ml Documented by: PG Care Time/CCT Total # of Minutes Spent Total Time Spent with Patient: Total time spent is greater than 50% in coordination of care (as documented) at patient's floor/unit and/or counseling patient: Coding Level of Care Code 64268 Subseq Hosp Care Lvl 2 Diagnoses Pneumonia due to COVID-19 virus U07.1; J12.89 Hypoxia R09.02 Dehydration E86.0
[2020-07-09 07:33] VITALS: BP 138/81; TEMP 97.7
[2020-07-09] MEDS: cefTRIAXone SODIUM 2,000 MG in DEXTROSE 5% 50 ML IV SCH (07:41)
[2020-07-09] MEDS: ENOXAPARIN INJ 40 MG/0.4 ML SYR SQ SCH (08:20)
[2020-07-09] MEDS: BENZONATATE 100 MG CAPSULE PO SCH (08:21)
[2020-07-09] MEDS: dexAMETHasone 6 MG in SYRINGE 0 ML IV SCH (08:21)
[2020-07-09] MEDS: REMDESIVIR 100 MG in SODIUM CHLORIDE 0.9% 230 ML IV SCH (08:36)
[2020-07-09] MEDS: FAMOTIDINE 20 MG in SYRINGE 3 ML IV SCH (09:49)
[2020-07-09] MEDS: AZITHROMYCIN 500 MG in DEXTROSE 5% 250 ML IV SCH (09:49)
[2020-07-09] MEDS: SODIUM CHLORIDE 0.9% 10ML FLUSH IV SCH (09:49)
[2020-07-09 10:01] VITALS: O2SAT 94
[2020-07-09] MEDS ORDERED: AZITHROMYCIN 250 MG TAB PO ONE (11:16)
[2020-07-09 11:52] VITALS: PULSE 74
--- NOTE | 2020-07-09 12:03 | Discharge Summary ---
Date of Service July 09, 2020 Admission HPI Per Admitting Provider The patient is a 50-year-old female with a past medical history including factor V Leiden whose and daughter and several of the family members have been diagnosed with COVID-19 infection. Her was admitted to the hospital here last evening with COVID-19 pneumonia. Testing for her in the emergency department tonight did reveal a positive COVID-19 test, and chest x-ray showed bilateral basal infiltrates suggesting pneumonia. She is also had significant issues with nausea but no vomiting, and feels very fatigued. Principal Diagnosis covid 19 pneumonia Discharge Exam Constitutional well developed and well nourished; no acute distress Neck trachea midline, no thyromegaly Respiratory normal respiratory effort, lungs clear to auscultation Cardiovascular RRR, no murmur, no edema Gastrointestinal (Abdomen) normal bowel sounds, soft, nontender, no hepatosplenomegaly Musculoskeletal no cyanosis or clubbing, extremities motor strength 5/5 Skin no rashes, warm and dry Neurologic patellar DTR's 2+ bilat, sensation intact and PERRL, EOMI, accommodation nl, no face palsy, no dysarthria Psychiatric A+Ox3, euthymic affect Lymphatic no cervical or axillary lymphadenopathy Discharge Data Allergies Allergy/AdvReac Type Severity Reaction Status Date / Time ampicillin AdvReac Intermediate Rash Unverified 07/06/20 20:18 Sulfa (Sulfonamide AdvReac Unknown Unknown Unverified 07/06/20 20:18 Antibiotics) Consultations 07/06/20 21:33 ED Decision to Admit Stat Hospital Course (1) Pneumonia due to COVID-19 virus: Pneumonia due to COVID-19 virus with hypoxia- Pulse ox initially 88% on room air, prior to treatments. Abnormal chest x-ray with bibasilar infiltrate Decadron 6 mg IV daily x 10 days, today is day 4 will continue for 6 more days at home Remdesivir IV per protocol, today is day 4, no further treatments needed since she is no longer hypoxic no role for plasma as diagnosis was over a week ago Ceftriaxone 1 g IV daily x 4 days Azithromycin 500 mg IV daily x 4 days, give 2 more doses at home no wheezing, no role for inhaler titrated down to room air, saturating 94-96% this morning far less dyspnea on exertion patient is eating and drinking well, she wants to go home and get better rest and recover instructed her to quarantine for 7 more days (2) Hypoxia: See above (3) Dehydration: NSS + KCl 20 mEq at 100 mils per hour stopped fluids 07/07 Total Time Total Time Spent Total Time Spent (In Minutes): 31 minutes Total Time Includes: Examination of the Patient, Discharge Planning and Medication Reconciliation Discharge Plan Discharge Items Patient Disposition: Home - Self-Care Reason For Visit: COVID 19 PNEUMONIA WITH HYPOXIA Discharge Diagnosis: COVID 19 pneumonia Acute hypoxic respiratory failure Condition on Discharge: Good Goals: rest and stay well nourished and well hydrated remain in quarantine another 7 days Activity: Resume your previous activity Weightbearing: Full weightbearing Non-emergency contact: Primary Care Provider Call non-emergency contact if: you have any medication questions, your symptoms worsen and you have a fever Follow-up/Referrals: PCP,NO [Primary Care Provider] - Diet: Regular Addtl Attending Provider Instructions: Medications: - DEXAMETHASONE: 6mg daily for 6 more days to complete 10 days total - AZITHROMYCIN: 250mg daily for 2 more days COVID 19 pneumonia, acute hypoxic respiratory failure treated with dexamethasone and Remdesivir and antibiotics improved over the past three days, titrated down to room air today with less shortness of breath complete the dexamethasone and azithromycin as above, start both tomorrow remain in quarantine another 7 days Pending Studies at Discharge: No Stand-Alone Forms: My [facility] [employer], Smoking Cessation Medications and DC Order Prescriptions: New dexamethasone 2 mg tablet 6 mg PO DAILY 6 Days Qty: 18 RF: 0 azithromycin 250 mg tablet 250 mg PO DAILY 2 Days Qty: 2 RF: 0 Continued acetaminophen [Tylenol Extra Strength] 500 mg Tablet 1,000 mg PO Q6H PRN (Reason: Fever Or Pain) RF: 0 ibuprofen 200 mg Tablet 400 mg PO Q6H PRN (Reason: Pain) RF: 0 Cough Drops 2.7 mg Lozenge 0 mg PO UD PRN (Reason: Cough) RF: 0 Elderberry Gummy 2 - 4 tabs PO DAILY RF: 0 Mellaleuca Activate Immune Tab 3 tabs PO DAILY RF: 0 Discharge Orders: Discharge Order (Routine); Ordered 07/09/20 Ordered By: Jeffrey Burleson Admission Data Admit Date/Time: 07/06/20 22:30 Attending Provider: Jeffrey Burleson Admit Provider: Figueroa Garvin Primary Care Provider: PCP,NO Other Providers: Figueroa Garvin Other Interventions: Discharge Summary Assessment (RN) Last Done: 07/09/20 11:50 Coding Level of Care Code D/C Day Management >30 mins Diagnoses Pneumonia due to COVID-19 virus U07.1; J12.89 Hypoxia R09.02 Dehydration E86.0
== END 2020-07-09 13:21 | disposition home or self-care (01) | DRG 177 ==
LOC: ED 15:48 → 2N 22:30 → SUATTDRO 22:30 → 2N 07-07 01:45 → 2S 07-08 16:19